=== PATIENT | male | born 1955 | race Caucasian/White ===

== ENCOUNTER 2016-07-19 21:09 | Inpatient (IN) | payer MEDICARE, MEDICAID ==
[2016-07-19] MEDS ORDERED: Sodium Chloride 0.9% 10 ML Syringe FLUSH PRN (21:19)
[2016-07-19 22:19] LABS: CHLORIDE,CL 99 mmol/L (98-107); SODIUM,NA 137 mmol/L (136-145)
[2016-07-19] MEDS ORDERED: Piperacillin/Tazobactam 4.5 GM in Sodium Chloride 0.9% 100 ML IV ONE (22:36)
[2016-07-19] MEDS: Sodium Chloride 0.9% 1,000 ML IV SCH (23:09)
[2016-07-20] MEDS ORDERED: Acetaminophen 500 MG Tab PO PRN (00:23)
[2016-07-20] MEDS ORDERED: Bisacodyl 10 MG Supp RECTAL PRN (00:23)
[2016-07-20] MEDS ORDERED: Bisacodyl 5 MG Tab PO PRN (00:23)
[2016-07-20] MEDS ORDERED: Magnesium Hydroxide 400 MG/5 ML Susp 30 ML Cup PO PRN (00:23)
[2016-07-20] MEDS ORDERED: Calcium Carbonate 750 MG Tab.Chew PO PRN (00:23)
[2016-07-20] MEDS ORDERED: Aluminum Hydroxide/Magnesium Hydroxide/Simethicone Susp 30 ML Cup PO PRN (00:23)
[2016-07-20] MEDS: Aspirin 81 MG Tab.Chew PO SCH ×2 (00:41→08:01)
[2016-07-20] MEDS: Piperacillin/Tazobactam 3.375 GM in Sodium Chloride 0.9% 100 ML IV SCH ×3 (05:53→21:52)
[2016-07-20] MEDS: Spironolactone 25 MG Tab PO SCH (08:00)
[2016-07-20] MEDS: BENZTROPINE MESYLATE 0.5 MG PO SCH ×2 (08:00→20:04)
[2016-07-20] MEDS: Losartan 50 MG Tab PO SCH (08:00)
[2016-07-20] MEDS: Insulin Aspart 100 Units/ML 3 ML Pen SUBCUT SCH ×3 (08:00→17:54)
[2016-07-20] MEDS: Carvedilol 25 MG Tab PO SCH ×2 (08:00→18:12)
[2016-07-20] MEDS ORDERED: Furosemide 40 MG Tab PO SCH (08:00)
[2016-07-20] MEDS: Sertraline 50 MG Tab PO SCH (08:02)
[2016-07-20] MEDS: QUEtiapine 100 MG Tab PO SCH ×3 (08:02→20:02)
[2016-07-20] MEDS: Multivitamin, Stress Formula with Zinc Tab PO SCH (08:02)
[2016-07-20] MEDS: Cyanocobalamin (Vitamin B12) 250 MCG Tab PO SCH (08:02)
[2016-07-20] MEDS: Docusate Sodium 100 MG Cap PO SCH ×2 (08:02→20:03)
[2016-07-20] MEDS: Enoxaparin 40 MG/0.4 ML Syringe SUBCUT SCH (08:03)
[2016-07-20] MEDS: Polyethylene Glycol 3350 Powder 17 GM Packet PO SCH (08:03)
[2016-07-20] MEDS: Insulin Glargine,Human Rec. Analog 100 Units/ML 3 ML Pen SUBCUT SCH (08:12)
[2016-07-20 08:41] LABS: CHLORIDE,CL 101 mmol/L (98-107); SODIUM,NA 137 mmol/L (136-145)
[2016-07-20] MEDS ORDERED: Iopamidol 612 MG/ML 100 ML Bottle IVPUSH ONE (10:12)
[2016-07-20] MEDS ORDERED: Sodium Chloride 0.9% 100 ML IV ONE (10:12)
[2016-07-20] MEDS ORDERED: Albuterol 0.083% 2.5 MG/3 ML Neb Soln NEB PRN (10:20)
--- NOTE | 2016-07-20 13:12 | PN ---
Progress Note for ROX ORNELAS Date: 07/20/2016 Room #: VM.221 The patient had a positive D-dimer this. morning. He underwent a CT scan of his chest for PE protocol. Teleradiographic report was negative for pulmonary embolus, but was consistent with bilateral pneumonia, probable interstitial along with congestive heart failure. Because of these findings, we will decrease his IV fluids to 75 an hour and discontinue his oral Lasix and give him IV Lasix and monitor his I's and O's. Continue his antibiotics. His oral BP medications are held because of hypotension. Continue to monitor his condition. FM: 07/20/2016 12:26:43 MODL: 07/20/2016 12:57:42 /[id number]
[2016-07-20] MEDS: Albuterol/Ipratropium 3.0-0.5 MG/3 ML Neb Soln NEB SCH ×2 (13:50→20:04)
[2016-07-20] MEDS: Furosemide 40 MG/4 ML VIAL IVPUSH SCH (13:52)
--- NOTE | 2016-07-20 14:20 | HP ---
REASON FOR ADMISSION: Dyspnea. HISTORY: A 60-year-old white male, resident of the Special Care Unit at the [facility]. He was noted to have increasing lethargy and shallow respirations. Apparently, he has been having trouble for the last several days. He is a very poor historian. In the retirement, his O2 sats were 85%. Temperature was 100.5, respirations were 36, pulse was 89. He was seen in the clinic by Terra Ortiz PA-C on 07/18/2016, diagnosed with viral upper respiratory infection, treated with Mucinex. He returned to the emergency room the next day with the above-noted worsening symptoms. He was assessed by Raleigh Ramsey PA-C in the emergency room and diagnosed with healthcare- acquired pneumonia. He has been started on Zosyn and Vancomycin and placed on acute care for management of his condition. Please see his note for additional details. PAST MEDICAL HISTORY: Includes diabetes mellitus, type 2; hyperlipidemia; schizophrenia; paranoia; chronic alcohol abuse; sleep apnea; obesity; anemia; edema; hypersexuality; osteoarthritis; hypertension. MEDICATIONS: From the retirement include Tylenol, spironolactone, aspirin, Lipitor, mouthwashes, Dulcolax rectally and orally, calcium with vitamin D, Coreg 50 mg b.i.d., Cozaar 100 mg daily, vitamin B12 of 500 mcg daily, Depakote extended release 2500 mg at bedtime, Depo-Provera 300 mg IM every , Colace, Invega tablet daily, Lasix 20 mg once daily, metformin 2000 mg daily, milk of magnesia, MiraLAX, Mucinex, multivitamin, Mylanta, NovoLog as directed with meals on Seroquel, Toujeo 50 units daily, Tums, vitamin D3, and Zoloft 50 mg daily. ALLERGIES: None known. PHYSICAL EXAMINATION: General: He is lethargic, but able to answer short sentences, very sleepy and drowsy at this time. He is afebrile at this time. Vital Signs: Pulse 76, blood pressure is 98/58. Respirations are 20, O2 sats 93%, but it did drop into the 80s without O2. The 93% O2 saturation, was on 4 L nasal cannula. HEENT: Throat is clear. Neck: No adenopathy. Heart: Regular rate and rhythm. Lungs: Marked diminished breath sounds. Abdomen: Markedly obese. No masses palpable. Extremities: Warm and dry. There does have about 1 to 2+ peripheral edema. LABORATORY DATA: White count 5.8; hemoglobin 10.3, which is decreased for him. His D-dimer today is elevated at 1.12. Electrolytes are normal. Creatinine is 1.5, seems to be his baseline. His LFTs are mildly elevated. I do not have any baseline to assess those. Troponin was negative. C-reactive protein was 18, proBNP was 771. Lactic acid was 1.9. Albumin 2.2. His chest x-ray shows infiltrate in the left base as a wedge shaped infiltrate, would need to exclude PE. ASSESSMENT: 1. Presumed healthcare associated pneumonia. 2. Rule out pulmonary embolism. PLAN: The patient will continue on acute care status. Dr. Zo Calloway is his primary provider. We will obtain a CT scan of his chest today. PE protocol to assess for PE. If that is confirmed, he will need to be started on heparin, and we will probably still continue his antibiotics. MRSA screen is pending. Blood cultures have been done. His influenza tests were negative. FM: 07/20/2016 10:28:22 MODL: 07/20/2016 14:16:51 /[id number]
[2016-07-20] MEDS: Sodium Chloride 0.9% 1,000 ML IV SCH (17:58)
[2016-07-20] MEDS: Divalproex Sodium 500 MG Tab.ER PO SCH (20:03)
[2016-07-20] MEDS: atorvaSTATin 40 MG Tab PO SCH (20:03)
[2016-07-21] MEDS: Albuterol/Ipratropium 3.0-0.5 MG/3 ML Neb Soln NEB SCH ×5 (01:44→18:00)
[2016-07-21] MEDS: Piperacillin/Tazobactam 3.375 GM in Sodium Chloride 0.9% 100 ML IV SCH ×3 (05:03→23:14)
[2016-07-21 07:12] LABS: CHLORIDE,CL 100 mmol/L (98-107); SODIUM,NA 137 mmol/L (136-145)
[2016-07-21] MEDS ORDERED: Insulin Glargine,Human Rec. Analog 100 Units/ML 3 ML Pen SUBCUT SCH (08:45)
[2016-07-21] MEDS: Cyanocobalamin (Vitamin B12) 250 MCG Tab PO SCH (08:48)
[2016-07-21] MEDS: Losartan 50 MG Tab PO SCH (08:49)
[2016-07-21] MEDS: Aspirin 81 MG Tab.Chew PO SCH ×2 (08:49→09:10)
[2016-07-21] MEDS: Docusate Sodium 100 MG Cap PO SCH ×2 (08:49→20:52)
[2016-07-21] MEDS: Multivitamin, Stress Formula with Zinc Tab PO SCH (08:50)
[2016-07-21] MEDS: Sertraline 50 MG Tab PO SCH (08:50)
[2016-07-21] MEDS: Carvedilol 25 MG Tab PO SCH ×2 (08:50→18:00)
--- NOTE | 2016-07-21 08:50 | ER ---
Date of Service: 07/19/2016 SUBJECTIVE: Mr. Pastor presents to the emergency room from the [facility]. Staff states that the patient has been experiencing tachypnea, cough, fever and increased work of breathing over the past several days. He was seen in the clinic yesterday by Terar Ortiz PA-C and was started on Mucinex. I am in the process of obtaining his clinic notes to determine what investigative studies were performed on the patient, if any. Staff states that the patient is normally ambulatory and has a voracious appetite, but they stated over the past several days, he has been extremely fatigued, running a fever and experiencing increased work of breathing. 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 PAST MEDICAL HISTORY: 1. Type 2 diabetes mellitus. 2. Dyslipidemia. 3. Paranoid schizophrenia. 4. Alcohol abuse. 5. Sleep apnea. 6. History of hyponatremia. 7. Potomania. 8. Polydipsia. 9. Obesity. 10.Anemia. 11.Peripheral edema. 12.Hypersexuality. 13.Osteoarthritis. 14.Hypertension. FAMILY HISTORY: Colon cancer. MEDICATIONS: Please see nursing notes. ALLERGIES: NKDA. REVIEW OF SYSTEMS: The patient was unable to offer any complaint other than he did complain that he had to urinate. He does complain of respirophasic chest pain with cough, but unable to obtain other review of systems. PHYSICAL EXAMINATION: General: This is a 60-year-old male patient, in no acute distress. Vital Signs: Blood pressure is 118/54 initially, respiratory rate 44, O2 saturation 93% on 4 L oxygen per nasal cannula, pulse rate 96, temperature is 37.2. Skin: Warm, pale, and mildly diaphoretic. HEENT: Head is normocephalic, atraumatic. Eyes, PERRLA. Extraocular movements are intact. Mouth, oral mucosa is somewhat dry. No erythema or exudate noted in the hypopharynx. Neck: Supple without masses, but there is no lymphadenopathy. Lungs: Diminished with crackles, wheezes and rhonchi noted. Heart: Regular rate and rhythm. Abdomen: Soft, obese and nontender. There are no masses noted. There is no hepatosplenomegaly noted. Extremities: He does have approximately 2+ peripheral edema. DIAGNOSTIC DATA: PA and lateral chest x-ray was obtained. He has what appears to be beginning of a left lower lobe infiltrate. LABORATORY DATA: WBC is 5.8, hemoglobin is 10.3, platelets are 185. Chemistry: Sodium is 137, potassium is 4.9, chloride is 99, bicarb is 29, BUN is 25, creatinine is 1.4, GFR is 52, glucose is 137, lactic acid is 1.5, calcium is 8.9, corrected calcium is 10.26, total bilirubin is 1.1, AST is 87, ALT is 85, alkaline phosphatase is 302, troponin is less than 0.017. C-reactive protein is 10.1. BNP is 771, total protein is 7.2, albumin is 2.3. EMERGENCY ROOM COURSE: IV access was established. He was started on Zosyn 4.5 g IV and vancomycin 1500 mg IV. The patient did meet admission criteria for using the CURB-65 criteria for pneumonia. Subsequently, the patient was admitted acutely to our facility to be followed by Dr. Ki Bliss this weekend. ASSESSMENT: Healthcare-acquired pneumonia. PLAN: The patient will be admitted. He will be an acute admission. The patient is a code level 1. We will start again on Zosyn 4.5 g every 6 hours and vancomycin dosed per pharmacy. We will re-evaluate labs in the morning. We will do DuoNeb breathing treatments 4 times daily. Again, the patient is a code level 1. MWK: 07/19/2016 23:16:25 MODL: 07/19/2016 23:58:50 /[id number]
[2016-07-21] MEDS: Polyethylene Glycol 3350 Powder 17 GM Packet PO SCH (08:51)
[2016-07-21] MEDS: Spironolactone 25 MG Tab PO SCH (08:51)
[2016-07-21] MEDS: QUEtiapine 100 MG Tab PO SCH ×3 (08:51→20:53)
[2016-07-21] MEDS: Insulin Aspart 100 Units/ML 3 ML Pen SUBCUT SCH ×5 (08:52→18:00)
[2016-07-21] MEDS: Famotidine 20 MG/2 ML SDV IVPUSH SCH ×2 (09:05→20:38)
[2016-07-21] MEDS: Omeprazole 20 MG Cap.CR PO SCH ×2 (09:05→18:00)
[2016-07-21] MEDS: BENZTROPINE MESYLATE 0.5 MG PO SCH (09:09)
[2016-07-21] MEDS: Enoxaparin 40 MG/0.4 ML Syringe SUBCUT SCH (09:11)
[2016-07-21] MEDS: Furosemide 40 MG/4 ML VIAL IVPUSH SCH (09:11)
[2016-07-21] MEDS: Insulin Glargine,Human Rec. Analog 100 Units/ML 3 ML Pen SUBCUT SCH (09:11)
--- NOTE | 2016-07-21 10:03 | PN ---
Progress Note for ROX ORNELAS Date: 07/21/2016 Room #: .[facility] CHIEF COMPLAINT: Cough and fevers with shortness of breath. HISTORY OF PRESENT ILLNESS: This is a 60-year-old male who came over from [facility] on Thursday due to hypoxia. O2 saturations were found to be as low as 85%. He was requiring 4 L. He had low-grade temp 99. He was found to have bilateral pneumonia. CT PE protocol was done, which did not reveal a PE. He had bilateral infiltrates and they also placed him on IV Lasix for diuresis. His proBNP was 700. He states he is breathing better. He is still doing some coughing. He has had no further fevers. He has had some mid abdominal discomfort, it has been rather constant, better after eating over the past 2 to 3 months. He denied any blood in his stools. He states bowel movements are working okay. He has not been on any recent Prilosec or NSAIDs. He does have a mild renal insufficiency with creatinine up to 1.5 on admission, but down to 1.3 today. He has been on Zosyn and vancomycin. OBJECTIVE: Vital Signs: Today, his temperature 97.7, pulse 81, blood pressure 106/71, respiratory rate 81, and O2 of 90 on 4 L. General: He is in no acute distress. Heart: Regular rate and rhythm. S1, S2 without murmur. Lungs: Sounds decreased but good air entry without wheezing or crackles. Abdomen: Distended. Positive bowel sounds. Soft and nontender. No hernias appreciated in the upper abdomen area. Extremities: Warm and dry with trace edema. Mental Status: He is alert. He is orientated x3. Recognizes me as his doctor. LABORATORY DATA: Lab work shows a white count of 7.4 it was normal on admission, hemoglobin 9.8 it was 10.3 on admission, and platelets 208. Sodium 137, potassium 4.5, chloride 100, bicarb 32, BUN 24, creatinine 1.3. Glucose 70. ASSESSMENT: 1. Healthcare-associated pneumonia, bilateral. Cultures so far negative. We will continue vancomycin and Zosyn. If cultures are negative today, we will switch him over to oral antibiotics tomorrow. 2. Acute hypoxic respiratory failure secondary to healthcare-associated pneumonia. He is on IV antibiotics. O2 saturations are improving. We will wean oxygen as able. 3. Concern for acute on chronic diastolic heart failure. At this point, the patient seems to be doing better from that. I do not feel there is any heart failure. Currently, proBNP has been repeated today. I am going to hold any further IV Lasix. Blood pressures are running lower. We will stop his IV fluids and we will continue to monitor him clinically. 4. Diabetes with near hypoglycemia this morning. We will cut back on his insulin and monitor closely. Metformin is on hold due to the CT scan. 5. Acute on chronic anemia. Hemoglobin dropped slightly. We will stop the Lovenox. We will get him on IV Pepcid and oral Protonix. Repeat another hemoglobin tomorrow. 6. Elevated LFTs. We will repeat in the morning. I will send off a GGT. We will consider a liver ultrasound; especially given his abdominal pain, we will also add a lipase. PLAN: At this point, the patient will continue acute cares with IV vancomycin and Zosyn. We will wean oxygen. We will monitor lab work. We will stop IV Lasix. I am going to also stop his oral Aldactone given his mild hypotension. We will monitor him closely. Anticipate he may be discharged back to the [facility] as soon as tomorrow MKA: 07/21/2016 08:45:59 MODL: 07/21/2016 09:35:52 /[id number]
[2016-07-21] MEDS: PALIPERIDONE 9 MG PO SCH (12:22)
[2016-07-21] MEDS: atorvaSTATin 40 MG Tab PO SCH (20:53)
[2016-07-21] MEDS: Divalproex Sodium 500 MG Tab.ER PO SCH (20:53)
[2016-07-22] MEDS: Albuterol/Ipratropium 3.0-0.5 MG/3 ML Neb Soln NEB SCH ×4 (00:08→18:41)
[2016-07-22] MEDS: Piperacillin/Tazobactam 3.375 GM in Sodium Chloride 0.9% 100 ML IV SCH ×3 (05:40→20:42)
[2016-07-22] MEDS: Omeprazole 20 MG Cap.CR PO SCH ×2 (06:04→16:15)
[2016-07-22 07:39] LABS: CHLORIDE,CL 96 mmol/L (98-107); SODIUM,NA 131 mmol/L (136-145)
[2016-07-22] MEDS: Docusate Sodium 100 MG Cap PO SCH ×2 (09:08→20:17)
[2016-07-22] MEDS: Aspirin 81 MG Tab.Chew PO SCH (09:08)
[2016-07-22] MEDS: Carvedilol 25 MG Tab PO SCH ×2 (09:09→17:53)
[2016-07-22] MEDS: Losartan 50 MG Tab PO SCH (09:10)
[2016-07-22] MEDS: Cyanocobalamin (Vitamin B12) 250 MCG Tab PO SCH (09:11)
[2016-07-22] MEDS: QUEtiapine 100 MG Tab PO SCH ×3 (09:11→20:18)
[2016-07-22] MEDS: Multivitamin, Stress Formula with Zinc Tab PO SCH (09:11)
[2016-07-22] MEDS: Sertraline 50 MG Tab PO SCH (09:12)
[2016-07-22] MEDS: Furosemide 40 MG Tab PO SCH ×2 (09:13→20:18)
[2016-07-22] MEDS: PALIPERIDONE 9 MG PO SCH (09:14)
[2016-07-22] MEDS: Insulin Glargine,Human Rec. Analog 100 Units/ML 3 ML Pen SUBCUT SCH (09:15)
[2016-07-22] MEDS: Insulin Aspart 100 Units/ML 3 ML Pen SUBCUT SCH ×3 (09:18→17:53)
[2016-07-22] MEDS: Famotidine 20 MG/2 ML SDV IVPUSH SCH ×2 (09:21→20:17)
[2016-07-22] MEDS ORDERED: Spironolactone 25 MG Tab PO SCH (13:15)
--- NOTE | 2016-07-22 13:54 | PN ---
Progress Note for ROX ORNELAS Date: 07/22/2016 Room #: VM.215 SUBJECTIVE: This is hospital day #4 on a 60-year-old admitted with multilobar pneumonia. His blood cultures have been negative. Chest x-ray repeated this morning due to increased oxygen needs overnight up to 5 L, it did show him to have some progression in the right upper lobe infiltrate but unchanged left lower lobe infiltrate. He has been afebrile. He is still coughing. He denies any chest pain. He denies any abdominal pain. Today, he has had some pain in his hands and fingers. Otherwise, he has not had any behaviors. He has been on scheduled nebulizers. He feels that it might help some. OBJECTIVE: Vital Signs: Temperature 97.7, pulse 63, blood pressure 114/78, respiratory rate 28, O2 90 on 5 L. General: He is in no acute distress. Heart: Regular rate and rhythm. Lungs: Sounds are decreased with some rare expiratory wheezing but clears after he coughs. Abdomen: Mildly distended but soft and nontender. Extremities: Warm and dry. He does have 2+ edema at the ankle. Mental Status: He recognizes me as his doctor. He did think he was in [facility] for some reason, but I redirected him that he was in [place]. LABORATORY DATA: Lab work reviewed today shows white count 6.8, hemoglobin 9.3 which is down just slightly from 9.8 yesterday, platelets are 206. Sodium dropped slightly to 131, potassium 4.4, chloride 96, bicarb 31, BUN 13, creatinine 1.2. Glucose mildly low again this morning at 75. ALT went up slightly to 99, AST up slightly to 104. GGT returned elevated at 254. Albumin low at 1.8. Vanco level improved, was low yesterday at 11, now 19. I do not see where his stool test has returned for blood yet. ASSESSMENT: 1. Healthcare-associated pneumonia with bilateral infiltrates on Vanco and Zosyn, now since admit on 07/19. No fevers. Improving white count. Slight increase in chest x-ray and increasing hypoxia. He already had a CT on admit which ruled out pulmonary embolism. At this point, I will continue the Vanco and Zosyn one more day and consider switching over to oral antibiotics tomorrow. 2. Acute hypoxic respiratory failure secondary to multi lobar pneumonia. 3. Acute on chronic diastolic heart failure. Mild exacerbation. He was receiving some IV Lasix. I held yesterday due to lower blood pressures. I will restart oral Lasix today. 4. Diabetes with some lower blood sugars. We will continue to cut back on insulin. His metformin is still on hold due to his CT scan. Kidney function has improved to the point we could restart it. We may restart it tomorrow. 5. Acute on chronic anemia. Hemoglobins are stable. He is now off Lovenox. He is on IV Pepcid and oral Protonix. We will monitor another hemoglobin tomorrow and await stool testing for blood before restarting Lovenox. 6. Elevated LFTs, probably mild case of hepatitis. We will recheck in the morning and we will get him set up for an abdominal ultrasound, which may be done outpatient if things do not worsen. PLAN: The patient will continue acute cares with IV Vanco and Zosyn. We will restart some oral Lasix as well as his Aldactone. Anticipate he may be able to be discharged back to the Care Center as soon as tomorrow if his hypoxia does not worsen further. JAX: 07/22/2016 12:53:05 MODL: 07/22/2016 13:09:37 /[id number]
[2016-07-22] MEDS: Polyethylene Glycol 3350 Powder 17 GM Packet PO SCH (16:15)
[2016-07-22] MEDS: Divalproex Sodium 500 MG Tab.ER PO SCH (20:17)
[2016-07-22] MEDS: atorvaSTATin 40 MG Tab PO SCH (20:18)
[2016-07-23] MEDS: Albuterol/Ipratropium 3.0-0.5 MG/3 ML Neb Soln NEB SCH ×4 (00:25→17:59)
[2016-07-23] MEDS ORDERED: Vancomycin 500 MG SDV ONE (03:07)
[2016-07-23] MEDS: Piperacillin/Tazobactam 3.375 GM in Sodium Chloride 0.9% 100 ML IV SCH (05:15)
[2016-07-23] MEDS: Omeprazole 20 MG Cap.CR PO SCH ×2 (06:50→16:29)
[2016-07-23 07:29] LABS: CHLORIDE,CL 95 mmol/L (98-107); SODIUM,NA 130 mmol/L (136-145)
[2016-07-23] MEDS ORDERED: metFORMIN 500 MG Tab PO SCH (08:00)
[2016-07-23] MEDS: Famotidine 20 MG/2 ML SDV IVPUSH SCH ×2 (08:10→20:22)
[2016-07-23] MEDS: Losartan 50 MG Tab PO SCH (08:11)
[2016-07-23] MEDS: Multivitamin, Stress Formula with Zinc Tab PO SCH (08:11)
[2016-07-23] MEDS: Furosemide 40 MG Tab PO SCH (08:11)
[2016-07-23] MEDS: Docusate Sodium 100 MG Cap PO SCH ×2 (08:11→20:22)
[2016-07-23] MEDS: Cyanocobalamin (Vitamin B12) 250 MCG Tab PO SCH (08:11)
[2016-07-23] MEDS: Sertraline 50 MG Tab PO SCH (08:12)
[2016-07-23] MEDS: Carvedilol 25 MG Tab PO SCH ×2 (08:12→17:32)
[2016-07-23] MEDS: QUEtiapine 100 MG Tab PO SCH ×3 (08:12→20:21)
[2016-07-23] MEDS: Aspirin 81 MG Tab.Chew PO SCH (08:13)
[2016-07-23] MEDS: Polyethylene Glycol 3350 Powder 17 GM Packet PO SCH (08:13)
[2016-07-23] MEDS: PALIPERIDONE 9 MG PO SCH (08:14)
[2016-07-23] MEDS: Insulin Aspart 100 Units/ML 3 ML Pen SUBCUT SCH ×3 (08:18→17:34)
[2016-07-23] MEDS: Insulin Glargine,Human Rec. Analog 100 Units/ML 3 ML Pen SUBCUT SCH (08:20)
[2016-07-23] MEDS: Levofloxacin 250 MG Tab PO SCH (08:29)
[2016-07-23] MEDS ORDERED: Furosemide 40 MG Tab PO SCH (09:00)
--- NOTE | 2016-07-23 13:14 | PN ---
Progress Note for ROX ORNELAS Date: 07/23/2016 Room #: VM.215 SUBJECTIVE: This is hospital day #5 on a 60-year-old admitted with a bilateral pneumonia. The patient has continued to be hypoxic. He has required up to 5 L of oxygen this morning. This morning his oxygen was off. His sats were in the mid 80s. He denies that he feels overly short of breath, but he continues to cough quite a bit. He has been afebrile. White count is normal. He has no abdominal pain, but his Hemoccult testing was positive. He has taken ibuprofen in the past at the [facility]. He has been on oral Prilosec and IV Pepcid during his admission. He otherwise appears quite sleepy this morning. He is getting his a.m. pills. He has not had any significant behaviors, but does live in the special care unit due to his paranoid chronic schizophrenia. Otherwise, the patient had a colonoscopy last year. He did have some polyps. He has not had any history of ulcers. OBJECTIVE: Vital Signs: His temperature is 98.3, pulse 84, blood pressure 120/71, respiratory rate 16, and O2 of 93% on 5 L. General: He is in no acute distress. Heart: Regular rate and rhythm. S1, S2 without murmur. Lungs: Sounds are decreased. There is some expiratory wheezing. Abdomen: Positive bowel sounds. It is soft and nontender. Extremities: Warm and dry. He does have 2+ edema to his shins. Mental Status: He is somnolent. We talked about that he was in the hospital in [place] today. Yesterday, he did think he was in [place]. LABORATORY DATA: Otherwise, his lab work is reviewed. His albumin has been quite low at 1.9. AST 126, ALT 121, alkaline phosphatase 451. Glucose 143; sodium 130, which went down from yesterday; potassium 4.5; chloride 95; bicarb 30; BUN 10; creatinine 1.1. White count 7.3, hemoglobin 9.7, platelets 217. ASSESSMENT: Acute hypoxic respiratory failure secondary to healthcare- associated pneumonia with bilateral infiltrates increasing on yesterday's x-ray. At this point, he is afebrile with a normal white count. We will stop the IV Vanco and Zosyn and start him on Levaquin 750 mg daily. 1. Healthcare-associated pneumonia. We will start him on Levaquin. We will complete at least a 7-day course. 2. History of schizophrenia. He is a little bit more somnolent this morning. Due to his hypoxia, I am going to do some ABGs to rule out hypercapnia. We will continue all his same medications. If he becomes overly sedated, we will cut back on them. 3. Acute on chronic diastolic heart failure exacerbation. He has been on oral Lasix. I am going to increase it to 80 mg twice daily today. 4. Hyponatremia. We will repeat in the morning. 5. Elevated LFTs with mild hepatitis worsening of LFTs today. We will repeat tomorrow and get him set up for right upper quadrant ultrasound. 6. Diabetes with hyperglycemia. Initially, we are going to restart metformin. He did get 1 dose, but then due to elevated liver testing, we decided to hold off on further doses. We have also stopped his Lipitor. 7. Acute on chronic anemia with Hemoccult-positive stools. We will continue twice daily oral Protonix. We will continue the IV Pepcid. He is not having any active bleeding. We will continue to avoid NSAIDs and most likely need to get him set up for an outpatient EGD down the road. PLAN: At this point, the patient still meets a criteria for acute cares. He is not sick enough to need to be transferred to a higher level facility, but he is not well enough to return to the care center. He may go beyond the 96-hour window, but I feel he is getting appropriate care. This is a medically complicated patient who I have been managing, and it would be difficult for a new physician to start over with his care. We will try to wean down his oxygen today. I anticipate he may be able to be discharged back to the Care Center on oral Levaquin as soon as tomorrow. I have also held his Aldactone due to mildly increasing potassium, and we will likely restart that tomorrow as well, but today, Lasix has already been increased, so that should help some too. For DVT prophylaxis, SCDs were ordered. His Hemoccult was positive. Therefore, Lovenox had been discontinued. MKA: 07/23/2016 12:45:59 MODL: 07/23/2016 13:03:12 /[id number]
[2016-07-23] MEDS: Furosemide 80 MG Tab PO SCH (16:29)
[2016-07-23] MEDS: Divalproex Sodium 500 MG Tab.ER PO SCH (20:21)
[2016-07-24] MEDS: Albuterol/Ipratropium 3.0-0.5 MG/3 ML Neb Soln NEB SCH ×4 (01:13→18:25)
[2016-07-24] MEDS: Polyethylene Glycol 3350 Powder 17 GM Packet PO SCH ×2 (04:55→07:25)
[2016-07-24] MEDS: Levofloxacin 250 MG Tab PO SCH ×2 (04:55→08:20)
[2016-07-24] MEDS: Aspirin 81 MG Tab.Chew PO SCH ×2 (04:55→07:24)
[2016-07-24] MEDS: Omeprazole 20 MG Cap.CR PO SCH ×3 (04:55→16:05)
[2016-07-24] MEDS: Sertraline 50 MG Tab PO SCH ×2 (04:56→07:26)
[2016-07-24] MEDS: Losartan 50 MG Tab PO SCH ×2 (04:56→07:25)
[2016-07-24] MEDS: Carvedilol 25 MG Tab PO SCH ×3 (04:56→17:03)
[2016-07-24] MEDS: Multivitamin, Stress Formula with Zinc Tab PO SCH ×2 (04:56→07:26)
[2016-07-24] MEDS: Furosemide 80 MG Tab PO SCH ×3 (04:56→16:01)
[2016-07-24] MEDS: QUEtiapine 100 MG Tab PO SCH ×4 (04:57→20:18)
[2016-07-24] MEDS: Docusate Sodium 100 MG Cap PO SCH ×3 (04:57→20:17)
[2016-07-24] MEDS: Cyanocobalamin (Vitamin B12) 250 MCG Tab PO SCH ×2 (04:57→07:29)
[2016-07-24] MEDS: PALIPERIDONE 9 MG PO SCH ×2 (04:58→07:26)
[2016-07-24] MEDS: Insulin Glargine,Human Rec. Analog 100 Units/ML 3 ML Pen SUBCUT SCH (07:25)
[2016-07-24] MEDS: Insulin Aspart 100 Units/ML 3 ML Pen SUBCUT SCH ×3 (07:26→17:05)
[2016-07-24] MEDS: Famotidine 20 MG/2 ML SDV IVPUSH SCH ×2 (07:27→20:16)
[2016-07-24] MEDS ORDERED: Insulin Glargine,Human Rec. Analog 100 Units/ML 3 ML Pen SUBCUT ONE (08:03)
--- NOTE | 2016-07-24 09:34 | PN ---
Progress Note for ROX ORNELAS Date: 07/24/2016 Room #: VM.215 SUBJECTIVE: This is hospital day #5 on a 60-year-old admitted with bilateral pneumonia. He thinks his breathing is a little bit better, but he is still coughing. He is weaker this morning, but he was up all night and not getting much sleep. He denies any abdominal pain. He is asking to eat something. He is being kept n.p.o. for an ultrasound, but he did get some sandwiches this morning before 7 a.m. He was drinking quite a bit of water yesterday, just 1200 during the day. 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 His sodium did go down to 127 today. Liver enzymes continue to trend up slightly. He is scheduled for an ultrasound this afternoon. He had an ABG yesterday that showed a PO2 of 63, CO2 was 42. He was on 3 and 4 L of oxygen yesterday, but on times he would not keep it on. Otherwise, he has been taken off Lovenox due to heme- positive stools and anemia. He has not had any further bleeding. His hemoglobins have been stable around 9. He has been up. He has been walking in the halls. They have been unable to keep SCDs on him. He continues to have significant leg swelling. He had good urine output of 3500 yesterday after 80 mg of Lasix b.i.d., but he was only a -690. So, his fluid balance has been positive, almost 2 L since his admission. OBJECTIVE: Vital Signs: Weight 144.6 kg, temp 98, pulse 82, blood pressure 141/65, respiratory rate 18, and O2 90 on 3 L. General: He is in no acute distress. He is lying in bed. Heart: Regular rate and rhythm. S1, S2 without murmur. Lungs: Sounds are decreased on the left base, but otherwise clear. Right upper lobe is clear. No crackles. No wheezing. He did do quite a bit of coughing after taking deep breaths. Abdomen: Positive bowel sounds. Soft and nontender. Extremities: Warm and dry. He does have 2+ edema. Mental Status: He is alert. He is orientated. He recognizes me as his doctor. LABORATORY DATA: Lab work does show white count of 8.8, hemoglobin 9.8, platelets 222. Sodium 127, potassium 4.8, chloride 91, bicarb 31, BUN 13, creatinine 1.3, glucose 241. AST 108, ALT 113, alkaline phosphatase 490, and albumin 1.9. His protein-creatinine ratio spot check was less than 6. ASSESSMENT AND PLAN: 1. Healthcare-associated pneumonia. He is now on Levaquin day #2. Will complete a 7-day antibiotic course total. 2. History of schizophrenia. He has been up most of the night. He is sleeping a little bit more today. 3. Qoyrd-yb-umfjrwk diastolic heart failure exacerbation. He is on oral Lasix 80 mg twice daily. I am going to restart his Aldactone 25 mg at noon. 4. Hyponatremia with history of psychogenic polydipsia. We will put him on a fluid restriction of 1500 mL and repeat this afternoon. 5. Elevated LFTs with mild hepatitis. We will check a liver ultrasound today. He is not having any pain. 6. Diabetes with hyperglycemia. Due to being n.p.o., we held his meal insulin. We will give him just 15 units of Lantus to avoid lows while he is n.p.o. 7. Hktkh-aq-uyjpoqr anemia. Hemoglobins have been stable. Hemoccult stools have been positive. We will continue him on twice-daily Protonix. I am going to discontinue the IV Pepcid. 8. DVT prophylaxis. He has been unable to keep on SCDs. He has been up and ambulatory, but we will get some Woody wraps in place. I think his legs will be too big for MICHELLE stockings. This will hopefully help with the swelling. We will also get PT to reassess him today due to some weakness, although, this could be related to his low-sodium. We will keep him n.p.o. with a fluid restriction. We will see how the ultrasound looks. He is being weaned down on oxygen and that is improving. Chest x-ray shows some improvement today. He is over 96 hours at a critical access hospital, but he is not showing any worsening condition to warrant a transfer. At this point, I think he needs probably just one more day of medical management. I would feel much more comfortable if we could wean him down further on oxygen because he will not be very compliant with it when he is back at the Care Center. MKA: 07/24/2016 08:59:34 MODL: 07/24/2016 09:27:33 /[id number]
[2016-07-24] MEDS: Divalproex Sodium 500 MG Tab.ER PO SCH (20:16)
[2016-07-25] MEDS: Albuterol/Ipratropium 3.0-0.5 MG/3 ML Neb Soln NEB SCH ×2 (01:36→07:27)
[2016-07-25] MEDS: Omeprazole 20 MG Cap.CR PO SCH (06:22)
[2016-07-25 06:42] VITALS: BP 128/70
[2016-07-25] MEDS: Famotidine 20 MG/2 ML SDV IVPUSH SCH (08:19)
[2016-07-25] MEDS: Polyethylene Glycol 3350 Powder 17 GM Packet PO SCH (08:19)
[2016-07-25] MEDS: Cyanocobalamin (Vitamin B12) 250 MCG Tab PO SCH (08:19)
[2016-07-25] MEDS: Multivitamin, Stress Formula with Zinc Tab PO SCH (08:20)
[2016-07-25] MEDS: Carvedilol 25 MG Tab PO SCH (08:20)
[2016-07-25] MEDS: QUEtiapine 100 MG Tab PO SCH (08:20)
[2016-07-25] MEDS: Levofloxacin 250 MG Tab PO SCH (08:20)
[2016-07-25] MEDS: Docusate Sodium 100 MG Cap PO SCH (08:20)
[2016-07-25] MEDS: Furosemide 80 MG Tab PO SCH (08:20)
[2016-07-25] MEDS: Aspirin 81 MG Tab.Chew PO SCH (08:20)
[2016-07-25] MEDS: Sertraline 50 MG Tab PO SCH (08:20)
[2016-07-25] MEDS: Losartan 50 MG Tab PO SCH (08:20)
[2016-07-25] MEDS: Insulin Aspart 100 Units/ML 3 ML Pen SUBCUT SCH (08:22)
[2016-07-25] MEDS: Insulin Glargine,Human Rec. Analog 100 Units/ML 3 ML Pen SUBCUT SCH (08:23)
--- NOTE | 2016-07-26 01:43 | DISCH ---
PRIMARY DISCHARGE DIAGNOSIS: 1. Acute hypoxic respiratory failure secondary to Healthcare-associated pneumonia. 2. Healthcare associated pneumonia, cultures negative, clinically improving. 3. History of schizophrenia. 4. Acute on chronic diastolic heart failure exacerbation. He received both IV and oral Lasix during his stay, improving on discharge. 5. Hyponatremia probably due to some congestive heart failure and some increased fluid intake. The patient's sodium improved after fluid restriction from a low of 127 up to 131 on discharge. 6. Elevated liver function tests with mild hepatitis and cholecystolithiasis by ultrasound but no further abdominal pain or clinical cholecystitis on discharge. Discussed with the patient if abdominal pain returns, he may need to see a surgeon and consider cholecystectomy. 7. Diabetes with hyperglycemia during his stay. He had been off metformin due to his CT. He did get 1 dose but due to elevated liver enzymes, this was then discontinued. 8. Acute on chronic anemia with concern for peptic ulcer disease. Given Hemoccult-positive stools. The patient's symptoms improved with oral Prilosec and IV Pepcid. He had no further drop in hemoglobin or abdominal pain and his hemoglobin was up to 10.1 on discharge. 9. History of hypersexuality, on Depo-Provera. 10.Obesity. 11.Osteoarthritis of both knees, previously took Motrin. 12.Family history of colon cancer. He did have a colonoscopy 1 year ago that showed some polyps. No need to repeat until 2020. 13.Leg swelling probably due to obesity and some heart failure. 14.Previous history of alcohol abuse. 15.Hyperlipidemia. 16.Essential hypertension with blood pressure under good control on discharge. REASON FOR ADMISSION: On the date of admission, this 60-year-old male, who had been in the clinic the day before with coughing but had good oxygen saturations, was brought over to the ER and requiring more oxygen. He was not having any fevers the day before in the clinic, but clinically in the hospital he was felt to have pneumonia. X-ray was showing bilateral pneumonia at that time. His white count was normal. He had influenza testing which was negative. They did have an [facility] of influenza [facility]. His highest temp was just over 99. He otherwise required at least up to 5 L of oxygen. He was started on IV vancomycin and Zosyn. Clinically his condition was improving but just slowly. He was getting some IV Lasix and even IV fluids initially, but the IV fluids were discontinued and this was switched over to oral Lasix. He was taking in large amounts of water, which would not have been so bad if it was just during the day, but he was up and eating at night and his sodium at one point dropped down to 127, but after I instituted a fluid restriction, this improved. I did increase his Lasix to 80 mg twice daily. He had actually been taking increasing Lasix over at the [facility] recently due to some weight gain over the . He had been up to almost like 320 pounds. He was down to 138.8 kg on the or 306 pounds in the clinic, but by the hospital admission date, his weight was listed at 133 kg, which was actually lower than the clinic weight, but I suspect that could have potentially been a mistake because by the next day, he was up to 136, and then even though he was not getting fluids and had gotten some Lasix, his weight had went up to at point 144 kg. Otherwise, he seemed to be breathing better. We were able to bring down his oxygen from the 5 L to the 2 L. At times, he was having some difficulty keeping it on because he just did not want to. He was also getting some nebulizer treatments. His lungs were clear. By discharge, he was not having any wheezing. He did have some abdominal discomfort and had a hemoglobin drop, which was noted through the clinic from 07/09 was down to 10.8, when 7 months ago it was 13.5; therefore, I did Hemoccult testing which showed him to be positive for blood. I had discontinued his Lovenox and monitored hemoglobins daily as well as kept him on oral Protonix and IV Pepcid. His hemoglobin has never dropped below 9. They remained stable on discharge, and he had no further abdominal pain. His LFTs were also elevated but were trending down by discharge. They were in the 60s and 80s and then to one point, they went up to 108 and 113 with an alkaline phosphatase of 490, elevated GGT. Because of his anemia, his ferritin was also checked and elevated but this could be an acute phase reactant due to his pneumonia. He also had an elevated creatinine up to 1.4 on admission and went up to 1.5 by the next day, but then trended down and was normal on discharge. He did have a CT PE protocol initially. His metformin was held due to that. Otherwise, the patient just had a prolonged stay due to his complicated medical history and multiple ongoing problems. He improved steadily each day, so it was never felt necessary to transfer him to a higher level of care. Even with his underlying schizophrenia, he had no behaviors during his stay. He took his medications okay. He did know he sleeps well at night. Otherwise, the patient will follow up with Dr. Calloway on 08/06 on [facility] rounds. He will have a followup CMP, CBC, lipids, iron studies, and A1c at that time. We did at one point decrease his insulin due to some hypoglycemia and actually his blood sugars never really went below 70. We felt this was due to change in appetite and diet intake compared to what he gets at the [facility] and by discharge his blood sugars were actually running higher due to being off the metformin, so we resumed his previous insulin doses. PHYSICAL EXAMINATION: Vital Signs: Otherwise on discharge include a weight of 144.2 kg, temperature 98.9, pulse 76, blood pressure 128/70, respiratory rate 20, O2 of 92% on 2 L. General: He is in no acute distress. Heart: Regular rate and rhythm. S1 and S2 without murmur. Lungs: Sounds are clear to auscultation bilaterally without crackles or wheezes. Abdomen: Positive bowel sounds. Soft and nontender. Extremities: Warm and dry. He has Woody wraps in place with 2+ edema at the mid travis. Mental status: He is alert, he is orientated x3. He recognizes me as his doctor. OTHER DISCHARGE PLANS: Use 2 L of oxygen to keep sats over 90%. Levaquin 750 on Thursday and Thursday and then his course will be completed. Prilosec 20 mg twice daily for 1 month and then 20 mg daily after that. I would keep the Woody wraps on his legs to help with swelling. No Motrin, Advil, or Aleve should be given. He will hold metformin and Lipitor until after his next followup labs. He will resume his previous [facility] doses of insulin. He will have PT, OT, and Speech at the [facility]. We will do a followup chest x-ray in one month to ensure resolution of the pneumonia if any abdominal pain, we will refer him to surgery because of the gallstones. He will continue nebulizer treatments as needed for shortness of breath. He will be on Aldactone 25 mg daily and he will resume Lasix 40 mg twice daily for fluid and blood pressure management as well as swelling and heart failure. We will have him on a diabetic and lower sodium diet. Thirty minutes were spent on the discharge process. MKA: 07/25/2016 12:02:35 MODL: 07/26/2016 01:38:25 /[id number]
== END 2016-07-25 09:35 | DRG 193 ==
LOC: VM.ED 21:09 → VM.MS 22:58
PROVIDERS: ADMIT Family Medicine; ATTEND Internal Medicine
DX: J18.9 Pneumonia, unspecified organism (principal); I50.33 Acute on chronic diastolic (congestive) heart failure; E87.1 Hypo-osmolality and hyponatremia; Y95 Nosocomial condition; F20.9 Schizophrenia, unspecified; I11.0 Hypertensive heart disease with heart failure; R79.89 Other specified abnormal findings of blood chemistry; K75.9 Inflammatory liver disease, unspecified; K80.20 Calculus of gallbladder without cholecystitis without obstruction; E11.65 Type 2 diabetes mellitus with hyperglycemia; D64.9 Anemia, unspecified; E66.9 Obesity, unspecified; M17.0 Bilateral primary osteoarthritis of knee; Z80.0 Family history of malignant neoplasm of digestive organs; Z86.59 Personal history of other mental and behavioral disorders; E78.5 Hyperlipidemia, unspecified; Z79.899 Other long term (current) drug therapy; Z79.84 Long term (current) use of oral hypoglycemic drugs; Z79.01 Long term (current) use of anticoagulants; R09.02 Hypoxemia
CPT/HCPCS: 36415; 36600; 71010; 71020; 71275; 76705; 80048; 80053; 80202; 82274; 82570; 82728; 82803; 82962; 82977; 83605; 83690; 83880; 84156; 84295; 84484; 85025; 85379; 86140; 87040; 87804; 94640-76; 94760; 96365; 97161-GP; 99285; 99285-GF; A9270-GY; J1650; J1815-GY; J1940; J2543; J3370; J7030; J7050; Q9967; S0028

== ENCOUNTER 2018-06-28 07:44 | Day surgery (SDC) | payer MEDICARE, MEDICAID ==
[2018-06-28] MEDS ORDERED: Propofol 200 MG/20 ML SDV ONE (09:17)
[2018-06-28] MEDS ORDERED: fentaNYL 100 MCG/2 ML SDV ONE (09:17)
[2018-06-28 12:02] VITALS: BP 132/69
[2018-06-28] MEDS: Lactated Ringers 1,000 ML IV SCH (14:42)
--- NOTE | 2018-06-28 16:44 | OR ---
PREOPERATIVE DIAGNOSES: 1. Positive FIT test. 2. Positive family history for colon cancer. POSTOPERATIVE DIAGNOSIS: Polyp at splenic flexure, 90 cm, removed. PROCEDURE PROPOSED: Total flexible colonoscopy. PROCEDURE DONE: Total flexible colonoscopy with cold snare polypectomy x1. INDICATION: This is a 62-year-old gentleman referred for colonoscopy due to a positive FIT test. Also, he has a rather strong family history of colon cancer in the immediate family and this will be his 1st colonoscopic exam. TECHNIQUE: The patient brought to the endoscopy suite, placed in left lateral decubitus position. He was sedated per [employer] with propofol. The flexible video colonoscope was then passed transanally and under visualization advanced to the cecum. Examination revealed normal ascending and transverse colon. In the splenic flexure area, there was a small polyp removed with a cold snare biopsy technique and retrieved with suction. The remainder of the examination of the descending, sigmoid, and rectal colon was unremarkable. There was no evidence of any diverticulosis, colitis, or other abnormalities. The scope was then withdrawn. The patient tolerated procedure well. FINAL IMPRESSION: 1. Polyp at 90 cm, removed. 2. Family history of colon cancer. PLAN: The patient will be sent a letter with pathology report. I felt that he should continue with colonoscopic exams every 5 years hereafter. SCM: 06/28/2018 10:44:54 MODL: 06/28/2018 16:37:55 /[id number]
== END 2018-06-28 12:10 | disposition home or self-care (01) ==
LOC: VM.SDS 07:44
PROVIDERS: ATTEND Surgery
DX: R19.5 Other fecal abnormalities (principal); D12.3 Benign neoplasm of transverse colon; I10 Essential (primary) hypertension; E11.9 Type 2 diabetes mellitus without complications; E66.9 Obesity, unspecified; Z68.41 Body mass index [BMI] 40.0-44.9, adult; E78.5 Hyperlipidemia, unspecified; F20.0 Paranoid schizophrenia; M17.0 Bilateral primary osteoarthritis of knee; Z87.891 Personal history of nicotine dependence; Z79.4 Long term (current) use of insulin; Z80.0 Family history of malignant neoplasm of digestive organs
CPT/HCPCS: 45385; 82962; J2704; J3010; J7120; 88305

== ENCOUNTER 2022-06-25 14:44 | Inpatient (IN) | payer MEDICARE, MEDICAID ==
[2022-06-25] MEDS ORDERED: Nitroglycerin 0.4 MG Tab.SL SL ONE (14:54)
[2022-06-25 15:37] LABS: PTT,PARTIAL THROMBOPLSTIN TIME 27.6 SEC (23.6-33.6)
[2022-06-25] MEDS ORDERED: cefTRIAXone 2 GM Vial IVPUSH ONE (15:40)
[2022-06-25 15:43] LABS: CHLORIDE,CL 92 mmol/L (98-107); SODIUM,NA 132 mmol/L (136-145)
[2022-06-25 15:45] LABS: ANION GAP 16.5 mmol/L (5-15); ESTIMATED GFR 56 mL/min (>=60)
[2022-06-25] MEDS ORDERED: Sodium Chloride 0.9% 1,000 ML IV SCH ×2 (16:00→20:00)
[2022-06-25] MEDS ORDERED: Iopamidol 755 Mg/ML 100 ML Bottle IVPUSH ONE (16:07)
[2022-06-25] MEDS ORDERED: Azithromycin 500 MG in Sodium Chloride 0.9% 250 ML IV ONE (17:23)
[2022-06-25] MEDS ORDERED: Acetaminophen 500 MG Tab PO ONE (17:24)
[2022-06-25] MEDS ORDERED: Mineral Oil/Petrolatum,White Crm 454 GM Jar TOP PRN (19:58)
[2022-06-25] MEDS ORDERED: Bisacodyl 5 MG Tab PO PRN (19:58)
[2022-06-25] MEDS ORDERED: Furosemide 40 MG Tab PO SCH (21:00)
[2022-06-25] MEDS: Carvedilol 25 MG Tab PO SCH (21:55)
[2022-06-25] MEDS: QUEtiapine 100 MG Tab PO SCH (21:57)
[2022-06-25] MEDS: Docusate Sodium 100 MG Cap PO SCH ×2 (21:57→23:00)
[2022-06-25] MEDS: Aspirin 81 MG Tab.Chew PO SCH (21:57)
[2022-06-25] MEDS: Ipratropium 0.02% 0.5 MG/2.5 ML Neb Soln NEB PRN (22:21)
[2022-06-25] MEDS: Albuterol 0.083% 2.5 MG/3 ML Neb Soln NEB PRN (22:21)
[2022-06-25] MEDS: Divalproex Sodium 500 MG Tab.ER PO SCH (22:23)
[2022-06-26] MEDS: Albuterol 0.083% 2.5 MG/3 ML Neb Soln NEB PRN ×2 (02:15→08:12)
[2022-06-26] MEDS: Ipratropium 0.02% 0.5 MG/2.5 ML Neb Soln NEB PRN ×2 (08:12→10:55)
[2022-06-26] MEDS ORDERED: VANCOmycin 2 GM/400 ML 2 GM in Premix Bag 1 BAG IV ONE (08:48)
[2022-06-26] MEDS: Insulin Lispro 100 Units/ML 3 ML Vial SUBCUT SCH ×3 (08:57→18:00)
[2022-06-26] MEDS: Aspirin 81 MG Tab.Chew PO SCH ×2 (08:57→21:51)
[2022-06-26] MEDS: QUEtiapine 100 MG Tab PO SCH ×2 (08:58→21:53)
[2022-06-26] MEDS: Carvedilol 25 MG Tab PO SCH ×2 (08:58→17:34)
[2022-06-26] MEDS: Cyanocobalamin (Vitamin B12) 250 MCG Tab PO SCH (09:00)
[2022-06-26] MEDS ORDERED: Spironolactone 25 MG Tab PO SCH (09:00)
[2022-06-26] MEDS ORDERED: Losartan 25 MG Tab PO SCH (09:00)
[2022-06-26] MEDS ORDERED: Insulin Glarg,Human.Rec.Analog 100 Unit/ML SUBCUT SCH (09:00)
[2022-06-26] MEDS: Docusate Sodium 100 MG Cap PO SCH ×2 (09:00→21:50)
[2022-06-26] MEDS: Omeprazole 20 MG Cap.CR PO SCH (09:01)
[2022-06-26] MEDS: atorvaSTATin 10 MG Tab PO SCH (09:02)
[2022-06-26] MEDS: Albuterol 0.083% 2.5 MG/3 ML Neb Soln NEB SCH ×4 (09:11→21:37)
[2022-06-26] MEDS: Polyethylene Glycol 3350 Powder 17 GM Packet PO SCH (09:25)
[2022-06-26] MEDS: Hypromellose 0.3% Ophth Soln 15 ML Bottle EYEBOTH SCH ×2 (09:27→21:38)
[2022-06-26] MEDS: Enoxaparin 40 MG/0.4 ML Syringe SUBCUT SCH (11:55)
[2022-06-26] MEDS: Piperacillin/Tazobactam 3.375 GM in Sodium Chloride 0.9% 100 ML IV SCH ×2 (11:55→17:34)
[2022-06-26] MEDS: Acetaminophen 325 MG Tab PO PRN (12:05)
[2022-06-26] MEDS: SALIVA SUBSTITUTE COMBO NO 9 MOUTHWASH PO SCH ×3 (12:43→21:53)
[2022-06-26] MEDS: PALIPERIDONE 6 MG PO SCH (13:24)
[2022-06-26] MEDS ORDERED: methylPREDNISolone Sodium Succinate 40 MG/1 ML SDV IVPUSH ONE (13:45)
[2022-06-26] MEDS ORDERED: Glucagon,Human Recombinant 1 MG Vial IM PRN (13:46)
[2022-06-26] MEDS ORDERED: 50% Dextrose in Water 50 ML Syringe IVPUSH PRN (13:46)
[2022-06-26] MEDS ORDERED: Insulin Lispro 100 Units/ML 3 ML Vial SUBCUT ONE (14:15)
[2022-06-26] MEDS ORDERED: cefTRIAXone 2 GM Vial IVPUSH SCH (20:00)
[2022-06-26] MEDS ORDERED: Azithromycin 250 MG Tab PO SCH (20:00)
[2022-06-26] MEDS: Sodium Chloride 0.9% 10 ML Syringe FLUSH PRN (21:39)
[2022-06-26] MEDS: Divalproex Sodium 500 MG Tab.ER PO SCH (21:51)
[2022-06-27] MEDS: Ipratropium 0.02% 0.5 MG/2.5 ML Neb Soln NEB PRN ×4 (00:38→21:53)
[2022-06-27] MEDS: Albuterol 0.083% 2.5 MG/3 ML Neb Soln NEB PRN ×2 (00:57→05:00)
[2022-06-27] MEDS: Piperacillin/Tazobactam 3.375 GM in Sodium Chloride 0.9% 100 ML IV SCH ×3 (01:05→16:26)
[2022-06-27] MEDS: Sodium Chloride 0.9% 10 ML Syringe FLUSH PRN ×3 (01:07→16:32)
[2022-06-27] MEDS: Albuterol 0.083% 2.5 MG/3 ML Neb Soln NEB SCH ×4 (06:55→20:53)
[2022-06-27 07:26] LABS: ANION GAP 10.2 mmol/L (5-15)
[2022-06-27] MEDS: Cyanocobalamin (Vitamin B12) 250 MCG Tab PO SCH (08:53)
[2022-06-27] MEDS: Polyethylene Glycol 3350 Powder 17 GM Packet PO SCH (08:53)
[2022-06-27] MEDS: Docusate Sodium 100 MG Cap PO SCH ×2 (08:53→21:08)
[2022-06-27] MEDS: atorvaSTATin 10 MG Tab PO SCH (08:53)
[2022-06-27] MEDS: Aspirin 81 MG Tab.Chew PO SCH ×2 (08:53→21:07)
[2022-06-27] MEDS: QUEtiapine 100 MG Tab PO SCH ×2 (08:54→21:08)
[2022-06-27] MEDS: Omeprazole 20 MG Cap.CR PO SCH (08:54)
[2022-06-27] MEDS: Carvedilol 25 MG Tab PO SCH ×2 (09:00→18:30)
[2022-06-27] MEDS: Insulin Lispro 100 Units/ML 3 ML Vial SUBCUT SCH ×3 (09:03→18:30)
[2022-06-27] MEDS: Insulin Glarg,Human.Rec.Analog 100 Unit/ML SUBCUT SCH (09:04)
[2022-06-27] MEDS: Hypromellose 0.3% Ophth Soln 15 ML Bottle EYEBOTH SCH ×2 (09:04→20:55)
[2022-06-27] MEDS: PALIPERIDONE 6 MG PO SCH (09:05)
[2022-06-27] MEDS: Acetaminophen 325 MG Tab PO PRN (09:18)
[2022-06-27] MEDS: methylPREDNISolone Sodium Succinate 40 MG/1 ML SDV IVPUSH SCH (09:28)
[2022-06-27] MEDS: SALIVA SUBSTITUTE COMBO NO 9 MOUTHWASH PO SCH ×2 (10:03→21:09)
[2022-06-27] MEDS ORDERED: Furosemide 20 MG/2 ML VIAL IV ONE (11:00)
[2022-06-27] MEDS: Enoxaparin 40 MG/0.4 ML Syringe SUBCUT SCH (12:47)
[2022-06-27] MEDS: Spironolactone 25 MG Tab PO SCH (16:26)
[2022-06-27] MEDS: VANCOmycin 1.5 GM/300 ML 1.5 GM in Premix Bag 1 BAG IV SCH (20:56)
[2022-06-27] MEDS: Divalproex Sodium 500 MG Tab.ER PO SCH (21:09)
[2022-06-28] MEDS: Albuterol 0.083% 2.5 MG/3 ML Neb Soln NEB PRN (00:36)
[2022-06-28] MEDS: Piperacillin/Tazobactam 3.375 GM in Sodium Chloride 0.9% 100 ML IV SCH ×3 (00:36→17:36)
[2022-06-28] MEDS: Ipratropium 0.02% 0.5 MG/2.5 ML Neb Soln NEB PRN (03:43)
[2022-06-28] MEDS: Albuterol 0.083% 2.5 MG/3 ML Neb Soln NEB SCH ×4 (06:57→21:13)
[2022-06-28] MEDS: Sodium Chloride 0.9% 10 ML Syringe FLUSH PRN ×4 (07:44→22:05)
[2022-06-28 08:38] LABS: ANION GAP 11.1 mmol/L (5-15)
[2022-06-28] MEDS: Insulin Lispro 100 Units/ML 3 ML Vial SUBCUT SCH ×3 (09:11→18:28)
[2022-06-28] MEDS: Insulin Glarg,Human.Rec.Analog 100 Unit/ML SUBCUT SCH (09:12)
[2022-06-28] MEDS: Hypromellose 0.3% Ophth Soln 15 ML Bottle EYEBOTH SCH ×2 (09:14→21:21)
[2022-06-28] MEDS: PALIPERIDONE 6 MG PO SCH (09:15)
[2022-06-28] MEDS: QUEtiapine 100 MG Tab PO SCH ×2 (09:16→21:17)
[2022-06-28] MEDS: Docusate Sodium 100 MG Cap PO SCH ×2 (09:17→21:18)
[2022-06-28] MEDS: Furosemide 40 MG Tab PO SCH (09:17)
[2022-06-28] MEDS: Spironolactone 25 MG Tab PO SCH (09:17)
[2022-06-28] MEDS: Cyanocobalamin (Vitamin B12) 250 MCG Tab PO SCH (09:17)
[2022-06-28] MEDS: Aspirin 81 MG Tab.Chew PO SCH ×2 (09:18→21:14)
[2022-06-28] MEDS: Omeprazole 20 MG Cap.CR PO SCH (09:18)
[2022-06-28] MEDS: methylPREDNISolone Sodium Succinate 40 MG/1 ML SDV IVPUSH SCH (09:27)
[2022-06-28] MEDS: VANCOmycin 1.5 GM/300 ML 1.5 GM in Premix Bag 1 BAG IV SCH ×2 (09:32→21:16)
[2022-06-28] MEDS: Carvedilol 25 MG Tab PO SCH ×2 (09:41→18:27)
[2022-06-28] MEDS: atorvaSTATin 10 MG Tab PO SCH (09:48)
[2022-06-28] MEDS: SALIVA SUBSTITUTE COMBO NO 9 MOUTHWASH PO SCH ×2 (09:58→21:22)
[2022-06-28] MEDS: Polyethylene Glycol 3350 Powder 17 GM Packet PO SCH (09:58)
[2022-06-28] MEDS ORDERED: Furosemide 40 MG/4 ML VIAL IV ONE ×2 (10:14→11:30)
[2022-06-28] MEDS: Enoxaparin 40 MG/0.4 ML Syringe SUBCUT SCH (12:48)
[2022-06-28] MEDS: Ibuprofen 200 MG Tab PO PRN (14:09)
[2022-06-28] MEDS: Divalproex Sodium 500 MG Tab.ER PO SCH (21:17)
[2022-06-29] MEDS: Piperacillin/Tazobactam 3.375 GM in Sodium Chloride 0.9% 100 ML IV SCH ×3 (00:12→16:49)
[2022-06-29] MEDS: Albuterol 0.083% 2.5 MG/3 ML Neb Soln NEB SCH ×4 (06:16→21:08)
[2022-06-29] MEDS: Sodium Chloride 0.9% 10 ML Syringe FLUSH PRN ×2 (08:13→21:23)
[2022-06-29] MEDS: atorvaSTATin 10 MG Tab PO SCH (08:29)
[2022-06-29] MEDS: Furosemide 40 MG Tab PO SCH (08:30)
[2022-06-29] MEDS: Aspirin 81 MG Tab.Chew PO SCH ×2 (08:30→21:09)
[2022-06-29] MEDS: QUEtiapine 100 MG Tab PO SCH ×2 (08:30→21:11)
[2022-06-29] MEDS: Carvedilol 25 MG Tab PO SCH ×2 (08:30→18:16)
[2022-06-29] MEDS: Omeprazole 20 MG Cap.CR PO SCH (08:30)
[2022-06-29] MEDS: Spironolactone 25 MG Tab PO SCH (08:31)
[2022-06-29] MEDS: Polyethylene Glycol 3350 Powder 17 GM Packet PO SCH (08:31)
[2022-06-29] MEDS: Cyanocobalamin (Vitamin B12) 250 MCG Tab PO SCH (08:31)
[2022-06-29] MEDS: Docusate Sodium 100 MG Cap PO SCH ×2 (08:31→21:09)
[2022-06-29] MEDS: Ibuprofen 200 MG Tab PO PRN (08:31)
[2022-06-29] MEDS: methylPREDNISolone Sodium Succinate 40 MG/1 ML SDV IVPUSH SCH (08:32)
[2022-06-29 08:34] LABS: ANION GAP 12.2 mmol/L (5-15)
[2022-06-29] MEDS: PALIPERIDONE 6 MG PO SCH (08:38)
[2022-06-29] MEDS: Insulin Lispro 100 Units/ML 3 ML Vial SUBCUT SCH ×3 (08:39→18:16)
[2022-06-29] MEDS: Insulin Glarg,Human.Rec.Analog 100 Unit/ML SUBCUT SCH (08:40)
[2022-06-29] MEDS: Hypromellose 0.3% Ophth Soln 15 ML Bottle EYEBOTH SCH ×2 (08:51→21:10)
[2022-06-29] MEDS: VANCOmycin 1.5 GM/300 ML 1.5 GM in Premix Bag 1 BAG IV SCH ×2 (08:54→21:11)
[2022-06-29] MEDS: SALIVA SUBSTITUTE COMBO NO 9 MOUTHWASH PO SCH ×2 (08:55→21:10)
[2022-06-29] MEDS ORDERED: Furosemide 40 MG/4 ML VIAL IV ONE (10:15)
[2022-06-29] MEDS: Enoxaparin 40 MG/0.4 ML Syringe SUBCUT SCH (12:48)
[2022-06-29] MEDS: Divalproex Sodium 500 MG Tab.ER PO SCH (21:09)
[2022-06-30] MEDS: Piperacillin/Tazobactam 3.375 GM in Sodium Chloride 0.9% 100 ML IV SCH ×2 (01:00→08:22)
[2022-06-30] MEDS: Divalproex Sodium 500 MG Tab.ER PO SCH ×2 (01:09→20:36)
[2022-06-30] MEDS: Albuterol 0.083% 2.5 MG/3 ML Neb Soln NEB SCH ×5 (04:30→20:35)
[2022-06-30 07:50] LABS: ANION GAP 11.4 mmol/L (5-15)
[2022-06-30] MEDS: Omeprazole 20 MG Cap.CR PO SCH (08:04)
[2022-06-30] MEDS: Aspirin 81 MG Tab.Chew PO SCH ×2 (08:05→20:35)
[2022-06-30] MEDS: Spironolactone 25 MG Tab PO SCH (08:06)
[2022-06-30] MEDS: Cyanocobalamin (Vitamin B12) 250 MCG Tab PO SCH (08:06)
[2022-06-30] MEDS: Docusate Sodium 100 MG Cap PO SCH ×2 (08:06→20:35)
[2022-06-30] MEDS: QUEtiapine 100 MG Tab PO SCH ×2 (08:06→20:35)
[2022-06-30] MEDS: Carvedilol 25 MG Tab PO SCH ×2 (08:07→17:24)
[2022-06-30] MEDS: atorvaSTATin 10 MG Tab PO SCH (08:08)
[2022-06-30] MEDS: Polyethylene Glycol 3350 Powder 17 GM Packet PO SCH (08:08)
[2022-06-30] MEDS: Furosemide 40 MG Tab PO SCH (08:08)
[2022-06-30] MEDS: VANCOmycin 1.5 GM/300 ML 1.5 GM in Premix Bag 1 BAG IV SCH (08:09)
[2022-06-30] MEDS ORDERED: Furosemide 40 MG/4 ML VIAL IV ONE ×2 (08:27→11:15)
[2022-06-30] MEDS: methylPREDNISolone Sodium Succinate 40 MG/1 ML SDV IVPUSH SCH (08:28)
[2022-06-30] MEDS: PALIPERIDONE 6 MG PO SCH (08:38)
[2022-06-30] MEDS: Hypromellose 0.3% Ophth Soln 15 ML Bottle EYEBOTH SCH ×2 (08:39→20:36)
[2022-06-30] MEDS: Insulin Lispro 100 Units/ML 3 ML Vial SUBCUT SCH ×3 (08:45→17:50)
[2022-06-30] MEDS: SALIVA SUBSTITUTE COMBO NO 9 MOUTHWASH PO SCH ×2 (08:45→20:37)
[2022-06-30] MEDS: Insulin Glarg,Human.Rec.Analog 100 Unit/ML SUBCUT SCH (10:25)
[2022-06-30] MEDS: predniSONE 20 MG Tab PO SCH (10:29)
[2022-06-30] MEDS: Levofloxacin 500 MG Tab PO SCH (10:36)
[2022-06-30] MEDS: Enoxaparin 40 MG/0.4 ML Syringe SUBCUT SCH (11:21)
[2022-06-30] MEDS: Ibuprofen 200 MG Tab PO PRN (15:26)
[2022-06-30] MEDS: Acetaminophen 325 MG Tab PO PRN (15:26)
[2022-07-01] MEDS: Albuterol 0.083% 2.5 MG/3 ML Neb Soln NEB SCH ×2 (07:10→11:04)
[2022-07-01 07:47] LABS: ANION GAP 9.8 mmol/L (5-15)
[2022-07-01] MEDS: Polyethylene Glycol 3350 Powder 17 GM Packet PO SCH (08:09)
[2022-07-01] MEDS: Aspirin 81 MG Tab.Chew PO SCH (08:09)
[2022-07-01] MEDS: predniSONE 20 MG Tab PO SCH (08:10)
[2022-07-01] MEDS: Omeprazole 20 MG Cap.CR PO SCH (08:10)
[2022-07-01] MEDS: QUEtiapine 100 MG Tab PO SCH (08:10)
[2022-07-01] MEDS: Spironolactone 25 MG Tab PO SCH (08:10)
[2022-07-01] MEDS: Carvedilol 25 MG Tab PO SCH (08:11)
[2022-07-01] MEDS: Cyanocobalamin (Vitamin B12) 250 MCG Tab PO SCH (08:11)
[2022-07-01] MEDS: atorvaSTATin 10 MG Tab PO SCH (08:11)
[2022-07-01] MEDS: Docusate Sodium 100 MG Cap PO SCH (08:11)
[2022-07-01] MEDS: PALIPERIDONE 6 MG PO SCH (08:12)
[2022-07-01] MEDS: SALIVA SUBSTITUTE COMBO NO 9 MOUTHWASH PO SCH (08:12)
[2022-07-01] MEDS: Hypromellose 0.3% Ophth Soln 15 ML Bottle EYEBOTH SCH (08:15)
[2022-07-01] MEDS: Insulin Glarg,Human.Rec.Analog 100 Unit/ML SUBCUT SCH (08:16)
[2022-07-01] MEDS: Insulin Lispro 100 Units/ML 3 ML Vial SUBCUT SCH ×2 (08:17→12:35)
[2022-07-01 09:42] VITALS: BP 108/67; PULSE 81
[2022-07-01] MEDS: Levofloxacin 500 MG Tab PO SCH (09:51)
[2022-07-01] MEDS: Enoxaparin 40 MG/0.4 ML Syringe SUBCUT SCH (12:35)
== END 2022-07-01 12:55 | DRG 871 ==
LOC: VM.ED 14:44 → EEVIPCON 17:29 → VM.MS 17:29
PROVIDERS: ADMIT Family Medicine; ATTEND Internal Medicine
PROC: 3E03329 Introduction of Other Anti-infective into Peripheral Vein, Percutaneous Approach (ICD-10-PCS; principal; 2022-06-25)
PROC: 5A09357 Assistance with Respiratory Ventilation, Less than 24 Consecutive Hours, Continuous Positive Airway Pressure (ICD-10-PCS; 2022-06-26)
DX: A41.9 Sepsis, unspecified organism (principal); I50.33 Acute on chronic diastolic (congestive) heart failure; J18.9 Pneumonia, unspecified organism; J96.01 Acute respiratory failure with hypoxia; N17.9 Acute kidney failure, unspecified; E11.65 Type 2 diabetes mellitus with hyperglycemia; T38.0X5A Adverse effect of glucocorticoids and synthetic analogues, initial encounter; D63.8 Anemia in other chronic diseases classified elsewhere; R65.20 Severe sepsis without septic shock; M15.9 Polyosteoarthritis, unspecified; Z66 Do not resuscitate; E66.01 Morbid (severe) obesity due to excess calories; F20.9 Schizophrenia, unspecified; I11.0 Hypertensive heart disease with heart failure; F41.9 Anxiety disorder, unspecified; F10.21 Alcohol dependence, in remission; D50.9 Iron deficiency anemia, unspecified; F42.9 Obsessive-compulsive disorder, unspecified; E78.00 Pure hypercholesterolemia, unspecified; K59.09 Other constipation; E78.2 Mixed hyperlipidemia; Z86.010 Personal history of colon polyps; Z98.49 Cataract extraction status, unspecified eye; Z86.16 Personal history of COVID-19; Z98.890 Other specified postprocedural states; Z82.49 Family history of ischemic heart disease and other diseases of the circulatory system; Z79.82 Long term (current) use of aspirin; Z79.899 Other long term (current) drug therapy; Z79.4 Long term (current) use of insulin; Z83.3 Family history of diabetes mellitus; Z87.891 Personal history of nicotine dependence
CPT/HCPCS: 36415; 71045; 71275; 80048; 80053; 80202; 81001; 82140; 82803; 82947; 83605; 83735; 83880; 84100; 84145; 84484; 85025; 85379; 85610; 85730; 86140; 87040; 87070; 87205; 93010; 94640; 94660; 94760; 96361; 96374; 99284; 99285-25; A9270-GY; J0456; J0696; J1650; J1815-GY; J1940; J2543; J2920; J3370; J3490; J7030; J7050; J7512; J7613-GY; Q9967